=== PATIENT | female | born 1940 | race Caucasian/White ===

== ENCOUNTER → 2017-02-11 | Outpatient (CLI) | payer OTHER ==
[2017-02-11 08:54] LABS: Basophils # (auto) 0 uL; Basophils % (auto) 0.7 % (0.0-2.0); CONDITION Y; Eosinophils # (auto) 0.3 uL; Eosinophils % (auto) 6.9 % (0.0-7.0); Hemoglobin 10.3 g/dL (12.2-16.2); Lymphocytes # (auto) 0.9 uL; Lymphocytes % (auto) 21.3 % (10.0-50.0); Mean Corpuscular Hemoglobin 32.6 pg (28.0-32.0); Mean Corpuscular Hgb Conc. 34.3 g/dL (32.0-36.0); Mean Corpuscular Volume 95.1 fL (80.0-100.0); Mean Platelet Volume 8.2 fL (7.4-10.4); Monocytes # (auto) 0.3 uL; Monocytes % (auto) 7.9 % (0.0-12.0); Neutrophils # (auto) 2.7 uL; Neutrophils % (auto) 63.2 % (37.0-80.0); Platelet Count (auto) 223 10^3/uL (140-450); Red Cell Distribution Width 13.1 % (11.6-16.0); White Blood Cell 4.2 10^3/uL (4.4-10.8)
[2017-02-11 08:58] LABS: Urine Bilirubin Negative (Negative); Urine Blood Negative /uL (Negative); Urine Color Yellow (Yellow); Urine Glucose Normal (Normal); Urine Ketone Negative (Negative); Urine Nitrite Negative (Negative); Urine RBC <1 /hpf (0 - 4); Urine Squamous Epithelial Cell FEW /hpf (<5); Urine Urobilinogen Normal (Negative); Urine pH 5.5 (5.0-8.0)
[2017-02-11 10:03] LABS: Albumin 3.6 g/dL (3.4-5.0); BUN/Creatinine Ratio 39.3; Bilirubin, Total 0.4 mg/dL (0.2-1.0); Calcium 8.9 mg/dL (8.5-10.1); Potassium 4.6 mmol/L (3.5-5.1); Total Protein 7.3 g/dL (6.4-8.2)
== END | disposition home or self-care (01) ==
LOC: LAB 08:17
PROVIDERS: ATTEND Internal Medicine
DX: K21.9 Gastro-esophageal reflux disease without esophagitis (principal); I42.9 Cardiomyopathy, unspecified
CPT/HCPCS: 36415; 80053; 80061; 81001; 84439; 84443; 85025; 85652; 86141

== ENCOUNTER → 2017-03-26 | Outpatient (CLI) | payer OTHER ==
[2017-03-26 09:22] LABS: Basophils # (auto) 0 uL; Basophils % (auto) 0.7 % (0.0-2.0); Eosinophils # (auto) 0.3 uL; Eosinophils % (auto) 5.7 % (0.0-7.0); Hematocrit 30.5 % (36.0-46.0); Hemoglobin 10.1 g/dL (12.2-16.2); Lymphocytes # (auto) 0.7 uL; Lymphocytes % (auto) 14.7 % (10.0-50.0); Mean Corpuscular Hemoglobin 31.5 pg (28.0-32.0); Mean Corpuscular Hgb Conc. 33.1 g/dL (32.0-36.0); Mean Platelet Volume 7.6 fL (6.9-10.8); Monocytes # (auto) 0.5 uL; Monocytes % (auto) 9.8 % (0.0-12.0); Neutrophils # (auto) 3.2 uL; Neutrophils % (auto) 69.1 % (37.0-80.0); Platelet Count (auto) 194 10^3/uL (140-450); Red Cell Distribution Width 13.3 % (11.8-14.3); White Blood Cell 4.7 10^3/uL (4.4-10.8)
[2017-03-26 09:40] LABS: Reticulocyte Count 1.02 % (0.5-1.5)
[2017-03-26 09:53] LABS: Vitamin B12 495 pg/mL (211-911)
[2017-03-26 10:24] LABS: Temperature: 23.7 C (20.0-25.0)
== END | disposition home or self-care (01) ==
LOC: LAB 08:11
PROVIDERS: ATTEND Internal Medicine
DX: D64.9 Anemia, unspecified (principal)
CPT/HCPCS: 36415; 82607; 82746; 83010; 83540; 85025; 85045

== ENCOUNTER → 2017-08-25 | Outpatient (CLI) | payer OTHER | END | disposition home or self-care (01) | LOC: XYW 07:42 | PROVIDERS: ATTEND Internal Medicine Cardiovascular Disease | DX: I08.0 Rheumatic disorders of both mitral and aortic valves (principal); I47.1 Supraventricular tachycardia | CPT/HCPCS: 93306 ==

== ENCOUNTER → 2017-09-01 | Outpatient (CLI) | payer OTHER ==
[2017-09-01 11:32] LABS: Albumin 3.7 g/dL (3.4-5.0); BUN/Creatinine Ratio 26.9; Bilirubin, Total 0.3 mg/dL (0.2-1.0); Calcium 8.2 mg/dL (8.5-10.1); Potassium 5.3 mmol/L (3.5-5.1); Total Protein 7.3 g/dL (6.4-8.2)
== END | disposition home or self-care (01) ==
LOC: LAB 10:25
PROVIDERS: ATTEND Internal Medicine Cardiovascular Disease
DX: I42.0 Dilated cardiomyopathy (principal); E78.5 Hyperlipidemia, unspecified; I10 Essential (primary) hypertension; Z95.0 Presence of cardiac pacemaker
CPT/HCPCS: 36415; 80053; 83880

== ENCOUNTER → 2017-09-11 | Outpatient (CLI) | payer OTHER ==
[2017-09-11 12:03] LABS: BUN/Creatinine Ratio 30.9; Calcium 8.7 mg/dL (8.5-10.1); Potassium 4.6 mmol/L (3.5-5.1)
== END | disposition home or self-care (01) ==
LOC: LAB 10:17
PROVIDERS: ATTEND Internal Medicine Cardiovascular Disease
DX: E87.5 Hyperkalemia (principal); I10 Essential (primary) hypertension; E78.5 Hyperlipidemia, unspecified; E78.00 Pure hypercholesterolemia, unspecified; Z95.0 Presence of cardiac pacemaker
CPT/HCPCS: 36415; 80048

== ENCOUNTER → 2017-09-21 | Outpatient (CLI) | payer OTHER ==
[2017-09-21 12:00] LABS: Basophils # (auto) 0 uL; Eosinophils # (auto) 0.2 uL; Hemoglobin 8.2 g/dL (12.2-16.2); Lymphocytes # (auto) 0.7 uL; Monocytes # (auto) 0.4 uL; Neutrophils # (auto) 3.8 uL; Neutrophils % (auto) 74.1 % (37.0-80.0); White Blood Cell 5.1 10^3/uL (4.4-10.8)
[2017-09-21 12:06] LABS: Basophils % (auto) 0.7 % (0.0-2.0); Eosinophils % (auto) 4.7 % (0.0-7.0); Lymphocytes % (auto) 13.2 % (10.0-50.0); Mean Corpuscular Hemoglobin 29.4 pg (28.0-32.0); Mean Corpuscular Hgb Conc. 32.8 g/dL (32.0-36.0); Mean Corpuscular Volume 89.6 fL (80.0-100.0); Monocytes % (auto) 7.3 % (0.0-12.0); Platelet Count (auto) 257 10^3/uL (140-450); Red Cell Distribution Width 14.9 % (11.8-14.3)
[2017-09-21 12:22] LABS: BUN/Creatinine Ratio 26.7; Calcium 8.7 mg/dL (8.5-10.1); Potassium 4.6 mmol/L (3.5-5.1)
== END | disposition home or self-care (01) ==
LOC: LAB 11:30
PROVIDERS: ATTEND Internal Medicine Cardiovascular Disease
DX: I11.0 Hypertensive heart disease with heart failure (principal); I50.9 Heart failure, unspecified; I95.2 Hypotension due to drugs; R42 Dizziness and giddiness; E78.5 Hyperlipidemia, unspecified; E78.00 Pure hypercholesterolemia, unspecified; Z95.0 Presence of cardiac pacemaker; Z79.01 Long term (current) use of anticoagulants
CPT/HCPCS: 36415; 80048; 83880; 85025

== ENCOUNTER → 2017-09-29 | Outpatient (CLI) | payer OTHER | END | disposition home or self-care (01) | LOC: LAB 16:15 | PROVIDERS: ATTEND Internal Medicine | DX: D64.9 Anemia, unspecified (principal); E78.00 Pure hypercholesterolemia, unspecified; I10 Essential (primary) hypertension; E78.5 Hyperlipidemia, unspecified; Z79.899 Other long term (current) drug therapy; Z95.0 Presence of cardiac pacemaker | CPT/HCPCS: 82270 ==

== ENCOUNTER → 2017-11-10 | Outpatient (CLI) | payer OTHER ==
[2017-11-10 12:51] LABS: Basophils # (auto) 0.1 uL; Eosinophils # (auto) 0.3 uL; Eosinophils % (auto) 5.9 % (0.0-7.0); Hematocrit 34.1 % (36.0-46.0); Hemoglobin 11.5 g/dL (12.2-16.2); Lymphocytes % (auto) 18.4 % (10.0-50.0); Mean Corpuscular Hemoglobin 32.3 pg (28.0-32.0); Mean Corpuscular Hgb Conc. 33.8 g/dL (32.0-36.0); Mean Corpuscular Volume 95.6 fL (80.0-100.0); Monocytes # (auto) 0.3 uL; Neutrophils # (auto) 3.7 uL; Neutrophils % (auto) 68.7 % (37.0-80.0); Platelet Count (auto) 224 10^3/uL (140-450); Red Blood Cells 3.57 10^6/uL (4.0-5.20); Red Cell Distribution Width 16.7 % (11.8-14.3); White Blood Cell 5.4 10^3/uL (4.4-10.8)
[2017-11-10 14:04] LABS: BUN/Creatinine Ratio 32.2; Potassium 3.9 mmol/L (3.5-5.1)
[2017-11-10 14:05] LABS: Albumin 3.7 g/dL (3.4-5.0); Bilirubin, Total 0.2 mg/dL (0.2-1.0); Calcium 8.8 mg/dL (8.5-10.1); Total Protein 7.3 g/dL (6.4-8.2)
== END | disposition home or self-care (01) ==
LOC: LAB 12:35
PROVIDERS: ATTEND Internal Medicine
DX: I12.9 Hypertensive chronic kidney disease with stage 1 through stage 4 chronic kidney disease, or unspecified chronic kidney disease (principal); N18.3 Chronic kidney disease, stage 3 (moderate); L40.50 Arthropathic psoriasis, unspecified; E78.00 Pure hypercholesterolemia, unspecified; E78.5 Hyperlipidemia, unspecified; Z79.01 Long term (current) use of anticoagulants
CPT/HCPCS: 36415; 80053; 83970; 84550; 85025; 85652

== ENCOUNTER → 2018-02-19 | Outpatient (CLI) | payer OTHER ==
[2018-02-19 09:32] LABS: Basophils # (auto) 0 uL; Eosinophils # (auto) 0.2 uL; Lymphocytes # (auto) 0.9 uL; Monocytes # (auto) 0.3 uL; White Blood Cell 4.5 10^3/uL (4.4-10.8)
[2018-02-19 09:35] LABS: Urine Bacteria MOD /hpf (None Seen); Urine Blood Negative /uL (Negative); Urine Hyaline Cast FEW /lpf (0 - 2); Urine Specific Gravity 1.015 (1.001-1.035); Urine WBC 11 /hpf (0 - 5)
[2018-02-19 09:37] LABS: Eosinophils % (auto) 5.2 % (0.0-7.0); Hematocrit 33.3 % (36.0-46.0); Hemoglobin 11.3 g/dL (12.2-16.2); Lymphocytes % (auto) 19.4 % (10.0-50.0); Mean Corpuscular Hemoglobin 34.4 pg (28.0-32.0); Mean Corpuscular Hgb Conc. 34.1 g/dL (32.0-36.0); Mean Corpuscular Volume 101.1 fL (80.0-100.0); Neutrophils # (auto) 3.1 uL; Neutrophils % (auto) 68.4 % (37.0-80.0); Nucleated Red Blood Cells % 0.1 %; Platelet Count (auto) 200 10^3/uL (140-450); Red Blood Cells 3.29 10^6/uL (4.0-5.20); Red Cell Distribution Width 13.3 % (11.8-14.3)
[2018-02-19 10:16] LABS: Albumin 3.7 g/dL (3.4-5.0); Bilirubin, Total 0.4 mg/dL (0.2-1.0); Calcium 8.7 mg/dL (8.5-10.1); Potassium 4.3 mmol/L (3.5-5.1); Total Protein 7.2 g/dL (6.4-8.2)
[2018-02-19 10:19] LABS: Free T4 (Free Thyroxine) 0.9 ng/dL (0.89-1.76)
== END | disposition home or self-care (01) ==
LOC: LAB 08:34
PROVIDERS: ATTEND Internal Medicine
DX: D64.9 Anemia, unspecified (principal); I42.9 Cardiomyopathy, unspecified
CPT/HCPCS: 36415; 80053; 80061; 81001; 82043; 82607; 83540; 83615; 84439; 84443; 85025

== ENCOUNTER → 2018-06-18 | Outpatient (CLI) | payer OTHER, MEDICARE ==
[2018-06-18 10:00] LABS: Basophils # (auto) 0 uL; Eosinophils # (auto) 0.1 uL; Monocytes # (auto) 0.5 uL; Neutrophils % (auto) 77.3 % (37.0-80.0)
[2018-06-18 10:04] LABS: Basophils % (auto) 0.5 % (0.0-2.0); Eosinophils % (auto) 1.5 % (0.0-7.0); Hematocrit 33.9 % (36.0-46.0); Hemoglobin 11.7 g/dL (12.2-16.2); Lymphocytes # (auto) 0.8 uL; Lymphocytes % (auto) 13.1 % (10.0-50.0); Mean Corpuscular Hemoglobin 34.5 pg (28.0-32.0); Mean Corpuscular Hgb Conc. 34.4 g/dL (32.0-36.0); Mean Corpuscular Volume 100.1 fL (80.0-100.0); Monocytes % (auto) 7.6 % (0.0-12.0); Nucleated Red Blood Cells % 0.1 %; Platelet Count (auto) 227 10^3/uL (140-450); Red Blood Cells 3.38 10^6/uL (4.0-5.20); Red Cell Distribution Width 13.3 % (11.8-14.3); White Blood Cell 6.4 10^3/uL (4.4-10.8)
[2018-06-18 11:54] LABS: Albumin 3.7 g/dL (3.4-5.0); BUN/Creatinine Ratio 34.4; Bilirubin, Total 0.6 mg/dL (0.2-1.0); Calcium 8.7 mg/dL (8.5-10.1); Total Protein 7.2 g/dL (6.4-8.2)
== END | disposition home or self-care (01) ==
LOC: LAB 09:22
PROVIDERS: ATTEND Internal Medicine
DX: N18.2 Chronic kidney disease, stage 2 (mild) (principal); D64.9 Anemia, unspecified; E78.5 Hyperlipidemia, unspecified
CPT/HCPCS: 36415; 80053; 80061; 85025

== ENCOUNTER → 2018-10-18 | Outpatient (CLI) | payer OTHER, MEDICARE ==
[2018-10-18 08:26] LABS: Basophils # (auto) 0.1 uL; Basophils % (auto) 1.2 % (0.0-2.0); Eosinophils # (auto) 0.2 uL; Eosinophils % (auto) 3.8 % (0.0-7.0); Hematocrit 32.9 % (36.0-46.0); Hemoglobin 11.1 g/dL (12.2-16.2); Lymphocytes % (auto) 21.2 % (10.0-50.0); Mean Corpuscular Hemoglobin 33.6 pg (28.0-32.0); Mean Corpuscular Hgb Conc. 33.7 g/dL (32.0-36.0); Mean Corpuscular Volume 99.6 fL (80.0-100.0); Monocytes # (auto) 0.4 uL; Monocytes % (auto) 7.9 % (0.0-12.0); Neutrophils # (auto) 3.1 uL; Neutrophils % (auto) 65.9 % (37.0-80.0); Platelet Count (auto) 233 10^3/uL (140-450); Red Cell Distribution Width 12.5 % (11.8-14.3); White Blood Cell 4.7 10^3/uL (4.4-10.8)
[2018-10-18 08:41] LABS: Potassium 4.4 mmol/L (3.5-5.1)
== END | disposition home or self-care (01) ==
LOC: LAB 07:55
PROVIDERS: ATTEND Internal Medicine
DX: E78.00 Pure hypercholesterolemia, unspecified (principal); I50.9 Heart failure, unspecified
CPT/HCPCS: 36415; 80061; 84132; 85025

== ENCOUNTER → 2019-01-19 | Outpatient (CLI) | payer OTHER ==
[~2019-01-19] MED LIST: ASPI81CH43 PO; ATOR10TA PO; CARV12.544 PO; DICL1GEL26 TD; FLUO-125 PO; FURO20TA3 PO; LISI2.5T47 PO; MULTCHW OR; TRAM50TA2 PO; WARF2.5T39 PO
[2019-01-19 08:36] LABS: Basophils # (auto) 0.1 uL; Basophils % (auto) 1.3 % (0.0-2.0); Eosinophils # (auto) 0.3 uL; Eosinophils % (auto) 6.7 % (0.0-7.0); Hematocrit 27.4 % (36.0-46.0); Hemoglobin 9.1 g/dL (12.2-16.2); Lymphocytes # (auto) 0.8 uL; Lymphocytes % (auto) 21.1 % (10.0-50.0); Mean Corpuscular Hemoglobin 29.4 pg (28.0-32.0); Mean Corpuscular Hgb Conc. 33.2 g/dL (32.0-36.0); Mean Corpuscular Volume 88.6 fL (80.0-100.0); Monocytes # (auto) 0.4 uL; Monocytes % (auto) 9.3 % (0.0-12.0); Neutrophils # (auto) 2.5 uL; Neutrophils % (auto) 61.6 % (37.0-80.0); Platelet Count (auto) 221 10^3/uL (140-450); Red Blood Cells 3.09 10^6/uL (4.0-5.20)
[2019-01-19 09:07] LABS: Potassium 4.4 mmol/L (3.5-5.1)
== END | disposition home or self-care (01) ==
LOC: LAB 08:15
PROVIDERS: ATTEND Internal Medicine
DX: D64.9 Anemia, unspecified (principal); I11.0 Hypertensive heart disease with heart failure; I50.9 Heart failure, unspecified; E78.00 Pure hypercholesterolemia, unspecified
CPT/HCPCS: 36415; 80061; 82607; 83540; 83615; 84132; 85025

== ENCOUNTER → 2019-02-03 | Outpatient (CLI) | payer OTHER, MEDICARE | END | disposition home or self-care (01) | LOC: LAB 14:48 | PROVIDERS: ATTEND Internal Medicine | DX: D64.9 Anemia, unspecified (principal) | CPT/HCPCS: 82270 ==

== ENCOUNTER → 2019-02-23 | Outpatient (CLI) | payer MEDICARE, OTHER | END | disposition home or self-care (01) | LOC: XY 07:25 | PROVIDERS: ATTEND Internal Medicine | DX: M89.9 Disorder of bone, unspecified (principal); I10 Essential (primary) hypertension | CPT/HCPCS: 78306; A9503 ==

== ENCOUNTER → 2019-03-14 | Outpatient (CLI) | payer OTHER ==
[2019-03-14 10:56] LABS: Basophils # (auto) 0 uL; Basophils % (auto) 1.3 % (0.0-2.0); Eosinophils # (auto) 0.2 uL; Eosinophils % (auto) 6.2 % (0.0-7.0); Hematocrit 32.2 % (36.0-46.0); Hemoglobin 10.4 g/dL (12.2-16.2); Lymphocytes # (auto) 0.7 uL; Lymphocytes % (auto) 21.7 % (10.0-50.0); Mean Corpuscular Hemoglobin 27.9 pg (28.0-32.0); Mean Corpuscular Hgb Conc. 32.3 g/dL (32.0-36.0); Mean Corpuscular Volume 86.5 fL (80.0-100.0); Monocytes # (auto) 0.2 uL; Monocytes % (auto) 7.4 % (0.0-12.0); Neutrophils # (auto) 2.1 uL; Neutrophils % (auto) 63.4 % (37.0-80.0); Nucleated Red Blood Cells % 0.1 %; Platelet Count (auto) 215 10^3/uL (140-450); Red Blood Cells 3.72 10^6/uL (4.0-5.20); Red Cell Distribution Width 21.6 % (11.8-14.3); White Blood Cell 3.3 10^3/uL (4.4-10.8)
[2019-03-14 11:41] LABS: Albumin 3.8 g/dL (3.4-5.0); BUN/Creatinine Ratio 23.2; Bilirubin, Total 0.4 mg/dL (0.2-1.0); Total Protein 7.6 g/dL (6.4-8.2); Uric Acid 5.4 mg/dL (2.6-6.0)
[2019-03-15 08:08] LABS: Immunoglobulin G, Serum 932 mg/dL (700-1600)
== END | disposition home or self-care (01) ==
LOC: LAB 10:22
PROVIDERS: ATTEND Internal Medicine
DX: D64.89 Other specified anemias (principal); M89.9 Disorder of bone, unspecified
CPT/HCPCS: 36415; 80053; 82232; 82784; 83615; 83883; 84155; 84156; 84165; 84166; 84550; 85025

== ENCOUNTER → 2019-05-03 | Outpatient (CLI) | payer OTHER, MEDICARE ==
[2019-05-03 11:50] LABS: Basophils # (auto) 0 uL; Eosinophils # (auto) 0.2 uL; Eosinophils % (auto) 4.3 % (0.0-7.0); Hematocrit 35.2 % (36.0-46.0); Hemoglobin 12.3 g/dL (12.2-16.2); Lymphocytes # (auto) 1.1 uL; Mean Corpuscular Hemoglobin 32.3 pg (28.0-32.0); Mean Corpuscular Hgb Conc. 34.8 g/dL (32.0-36.0); Mean Corpuscular Volume 92.8 fL (80.0-100.0); Monocytes # (auto) 0.3 uL; Monocytes % (auto) 6.7 % (0.0-12.0); Nucleated Red Blood Cells % 0.1 %; Platelet Count (auto) 201 10^3/uL (140-450); White Blood Cell 4.6 10^3/uL (4.4-10.8)
[2019-05-03 11:52] LABS: Red Cell Distribution Width 22.1 % (11.8-14.3)
[2019-05-03 12:08] LABS: INR 1.22 (0.9-1.15)
== END | disposition home or self-care (01) ==
LOC: LAB 11:24
PROVIDERS: ATTEND Internal Medicine
DX: I11.0 Hypertensive heart disease with heart failure (principal); I50.9 Heart failure, unspecified; D64.9 Anemia, unspecified; I48.91 Unspecified atrial fibrillation; I25.2 Old myocardial infarction
CPT/HCPCS: 36415; 83540; 85025; 85610; 85652

== ENCOUNTER → 2019-06-14 | Outpatient (CLI) | payer OTHER, MEDICARE ==
[2019-06-14 10:23] LABS: Eosinophils # (auto) 0.2 uL; Lymphocytes # (auto) 0.8 uL; Monocytes # (auto) 0.3 uL; Neutrophils # (auto) 3.4 uL; Platelet Count (auto) 278 10^3/uL (140-450); White Blood Cell 4.7 10^3/uL (4.4-10.8)
[2019-06-14 10:24] LABS: Basophils # (auto) 0 uL; Eosinophils % (auto) 3.9 % (0.0-7.0); Hematocrit 31.6 % (36.0-46.0); Lymphocytes % (auto) 17.6 % (10.0-50.0); Mean Corpuscular Hgb Conc. 34.8 g/dL (32.0-36.0); Mean Corpuscular Volume 100.7 fL (80.0-100.0); Monocytes % (auto) 6.7 % (0.0-12.0); Neutrophils % (auto) 70.8 % (37.0-80.0); Red Blood Cells 3.14 10^6/uL (4.0-5.20); Red Cell Distribution Width 13.3 % (11.8-14.3)
[2019-06-14 10:46] LABS: Albumin 3.9 g/dL (3.4-5.0); Calcium 9.4 mg/dL (8.5-10.1); Potassium 4.4 mmol/L (3.5-5.1)
[2019-06-14 10:50] LABS: BUN/Creatinine Ratio 20.9; Bilirubin, Total 0.4 mg/dL (0.2-1.0); Total Protein 7.4 g/dL (6.4-8.2)
[2019-06-14 10:55] LABS: % Iron Saturation 28.6 % (15-50)
[2019-06-17 02:25] LABS: Ferritin 192.1 ng/mL (10-322); Folate (Folic Acid) > 24.00 ng/mL (5.38-24)
== END | disposition home or self-care (01) ==
LOC: LAB 08:58
PROVIDERS: ATTEND Internal Medicine
DX: D64.89 Other specified anemias (principal); M89.9 Disorder of bone, unspecified
CPT/HCPCS: 36415; 80053; 82607; 82728; 82746; 83540; 83550; 85025

== ENCOUNTER → 2019-09-13 | Outpatient (CLI) | payer MEDICARE, OTHER ==
[2019-09-13 09:44] LABS: Basophils # (auto) 0.1 10 ^3/uL (0-0.2); Eosinophils # (auto) 0.2 10 ^3/uL (0-0.8); Hematocrit 30.4 % (36.0-46.0); Hemoglobin 10.4 g/dL (12.2-16.2); Lymphocytes # (auto) 0.7 10 ^3/uL (0.4-5.4); Monocytes # (auto) 0.4 10 ^3/uL (0-1.3); Platelet Count (auto) 220 10^3/uL (140-450); Red Blood Cells 3.01 10^6/uL (4.0-5.20); White Blood Cell 5.2 10^3/uL (4.4-10.8)
[2019-09-13 09:46] LABS: Basophils % (auto) 1.3 % (0.0-2.0); Eosinophils % (auto) 3.2 % (0.0-7.0); Lymphocytes % (auto) 14.4 % (10.0-50.0); Mean Corpuscular Hemoglobin 34.5 pg (28.0-32.0); Mean Corpuscular Hgb Conc. 34.3 g/dL (32.0-36.0); Mean Corpuscular Volume 100.8 fL (80.0-100.0); Neutrophils # (auto) 3.8 10 ^3/uL (1.6-8.6); Neutrophils % (auto) 74.1 % (37.0-80.0)
[2019-09-13 10:19] LABS: Albumin 3.8 g/dL (3.4-5.0); Potassium 4.2 mmol/L (3.5-5.1)
[2019-09-13 10:20] LABS: % Iron Saturation 11.1 % (15-50)
[2019-09-13 10:22] LABS: BUN/Creatinine Ratio 28.3; Bilirubin, Total 0.4 mg/dL (0.2-1.0); Total Protein 7.4 g/dL (6.4-8.2)
== END | disposition home or self-care (01) ==
LOC: LAB 09:27
PROVIDERS: ATTEND Internal Medicine Hematology & Oncology
DX: D64.89 Other specified anemias (principal)
CPT/HCPCS: 36415; 80053; 82607; 83540; 83550; 85025

== ENCOUNTER → 2019-10-25 | Outpatient (CLI) | payer OTHER ==
[~2019-10-25] MED LIST changes: +PANT40T PO
== END | disposition home or self-care (01) ==
LOC: LAB 12:47
PROVIDERS: ATTEND Internal Medicine
DX: I48.91 Unspecified atrial fibrillation (principal)
CPT/HCPCS: 36415; 84439; 84443

== ENCOUNTER 2019-11-11 14:43 | Inpatient (IN) | payer OTHER ==
[~2019-11-11] VITALS: Ht 157.5 cm; Wt 47.7 kg
[~2019-11-11 14:43] MED LIST changes: -PANT40T PO
[2019-11-11 15:53] LABS: Eosinophils # (auto) 0.2 10 ^3/uL (0-0.8); Lymphocytes # (auto) 0.9 10 ^3/uL (0.4-5.4); Platelet Count (auto) 264 10^3/uL (140-450); Red Blood Cells 2.42 10^6/uL (4.0-5.20)
[2019-11-11 15:55] LABS: Basophils # (auto) 0.1 10 ^3/uL (0-0.2); Basophils % (auto) 1.2 % (0.0-2.0); Eosinophils % (auto) 4.5 % (0.0-7.0); Hematocrit 21.6 % (36.0-46.0); Lymphocytes % (auto) 17.8 % (10.0-50.0); Mean Corpuscular Hgb Conc. 31.3 g/dL (32.0-36.0); Mean Corpuscular Volume 89.4 fL (80.0-100.0); Monocytes # (auto) 0.4 10 ^3/uL (0-1.3); Monocytes % (auto) 8.9 % (0.0-12.0); Neutrophils # (auto) 3.2 10 ^3/uL (1.6-8.6); Neutrophils % (auto) 67.6 % (37.0-80.0); White Blood Cell 4.8 10^3/uL (4.4-10.8)
[2019-11-11] MEDS ORDERED: AZITHROMYCIN 500MG/ 250ML 250 ML IV ONE (16:00)
[2019-11-11] MEDS ORDERED: cefTRIAXone 1GM/50ML D5W 50 ML IV ONE (16:00)
[2019-11-11 16:10] LABS: Hemoglobin 6.8 g/dL (12.2-16.2)
[2019-11-11 16:13] LABS: Albumin 3.6 g/dL (3.4-5.0); Anion Gap 5 (5-15); Blood Urea Nitrogen 24 mg/dL (7-18); Calcium 8.3 mg/dL (8.5-10.1); Carbon Dioxide 27 mmol/L (21-32); Chloride 107 mmol/L (98-107); Glucose 101 mg/dL (74-106); Potassium 3.7 mmol/L (3.5-5.1); Sodium 139 mmol/L (136-145)
[2019-11-11 16:16] LABS: INR 1.72 (0.9-1.15); Partial Thromboplastin Time 32.4 sec (23.64-32.05)
[2019-11-11 16:18] LABS: Alanine Aminotransferase 18 U/L (13-56); Alkaline Phosphatase 56 U/L (45-117); Aspartate Aminotransferase 17 U/L (15-37); BUN/Creatinine Ratio 26.1; Bilirubin, Total 0.2 mg/dL (0.2-1.0); GFR African American 76 mL/min; GFR Non-African American 62 mL/min; Total Protein 7.1 g/dL (6.4-8.2)
[2019-11-11] MEDS ORDERED: MORPHINE SULF INJ 2 MG/ML SYRINGE 1ML IV PRN ×2 (16:45)
[2019-11-11] MEDS ORDERED: HYDROcodone-ACET 5/325MG TAB PO PRN (16:45)
[2019-11-11] MEDS ORDERED: ALUM & MAG HYDROX-SIMETH LIQ(MAALOX) 30 ML PO PRN (16:45)
[2019-11-11] MEDS ORDERED: DOCUSATE SOD 100 MG CAP PO PRN (16:45)
[2019-11-11] MEDS ORDERED: FUROSEMIDE 20 MG/2 ML VIAL IV ONE (16:45)
[2019-11-11] MEDS ORDERED: NITROGLYCERIN 0.4 MG SL TAB SL PRN (16:45)
[2019-11-11] MEDS ORDERED: ONDANSETRON HCL 4 MG/2 ML VIAL IV PRN (16:45)
[2019-11-11] MEDS ORDERED: TEMAZEPAM 15 MG CAP PO PRN (16:45)
[2019-11-11] MEDS: SODIUM CHLORIDE 0.9% 1,000 ML IV SCH (17:32)
[2019-11-11 18:56] VITALS: BP 107/40
[2019-11-11 19:11] VITALS: BP 108/34
[2019-11-11 20:15] VITALS: BP 115/51
[2019-11-11 21:26] VITALS: BP 108/52
[2019-11-11 22:00] VITALS: BP 108/52
[2019-11-11] MEDS ORDERED: HEPARIN SODIUM (PORCINE) 5000 UNITS/ML 1ML VIAL SC SCH (22:00)
[2019-11-11] MEDS: CARVEDILOL 12.5 MG TAB PO SCH (22:00)
[2019-11-11] MEDS: ATORVASTATIN 20 MG TAB PO SCH (22:04)
[2019-11-12] VITALS (13 sets, daily range): BP systolic 97–126; BP diastolic 43–68
[2019-11-12] MEDS: FUROSEMIDE 20 MG/2 ML VIAL IV SCH ×2 (06:05→17:59)
[2019-11-12 06:56] LABS: Eosinophils # (auto) 0.2 10 ^3/uL (0-0.8); Lymphocytes # (auto) 0.6 10 ^3/uL (0.4-5.4); Mean Corpuscular Volume 87.3 fL (80.0-100.0); Monocytes # (auto) 0.3 10 ^3/uL (0-1.3); Neutrophils # (auto) 3.7 10 ^3/uL (1.6-8.6); White Blood Cell 4.9 10^3/uL (4.4-10.8)
[2019-11-12 06:59] LABS: Basophils # (auto) 0.1 10 ^3/uL (0-0.2); Hematocrit 23.4 % (36.0-46.0); Hemoglobin 7.5 g/dL (12.2-16.2); Lymphocytes % (auto) 12.3 % (10.0-50.0); Mean Corpuscular Hemoglobin 28.1 pg (28.0-32.0); Mean Corpuscular Hgb Conc. 32.2 g/dL (32.0-36.0); Neutrophils % (auto) 75.7 % (37.0-80.0); Platelet Count (auto) 231 10^3/uL (140-450); Red Blood Cells 2.68 10^6/uL (4.0-5.20); Red Cell Distribution Width 18.7 % (11.8-14.3)
[2019-11-12 07:16] LABS: Potassium 3.6 mmol/L (3.5-5.1)
[2019-11-12 07:22] LABS: Albumin 3.2 g/dL (3.4-5.0); BUN/Creatinine Ratio 30.1; Bilirubin, Total 0.3 mg/dL (0.2-1.0); Phosphorus 3.2 mg/dL (2.5-4.90); Total Protein 6.2 g/dL (6.4-8.2)
[2019-11-12 07:30] LABS: INR 1.68 (0.9-1.15); Partial Thromboplastin Time 33.2 sec (23.64-32.05)
[2019-11-12] MEDS: cefTRIAXone 1GM/50ML D5W 50 ML IV SCH (08:41)
[2019-11-12] MEDS: SODIUM CHLORIDE 0.9% 1,000 ML IV SCH (09:13)
[2019-11-12] MEDS ORDERED: ASPirin 81 mg TAB PO SCH (10:00)
[2019-11-12] MEDS: FLUoxetine HCL 20 MG CAP PO SCH (10:14)
[2019-11-12] MEDS: AZITHROMYCIN 500MG/ 250ML 250 ML IV SCH (10:14)
[2019-11-12] MEDS: LISINOPRIL 5 MG TAB PO SCH (10:15)
[2019-11-12] MEDS: CARVEDILOL 12.5 MG TAB PO SCH ×2 (10:15→21:49)
[2019-11-12] MEDS ORDERED: POLYETHYLENE GLYCOL 17 GM PWDR PO ONE (11:45)
[2019-11-12] MEDS ORDERED: diphenhdrAMINE HCL 25 MG CAP PO PRN (13:45)
[2019-11-12] MEDS ORDERED: ACETAMINOPHEN 500 MG TAB PO ONE (14:00)
[2019-11-12 16:05] LABS: Urine Bacteria NONE SEEN /hpf (None Seen); Urine Blood TRACE /uL (Negative); Urine Hyaline Cast FEW /lpf (0 - 2); Urine Mucus FEW (None Seen); Urine Specific Gravity 1.015 (1.001-1.035); Urine WBC 38 /hpf (0 - 5)
[2019-11-12] MEDS ORDERED: FUROSEMIDE 20 MG/2 ML VIAL IV ONE (16:15)
[2019-11-12] MEDS: PANTOPRAZOLE 40 MG TAB PO SCH (21:48)
[2019-11-12] MEDS: ATORVASTATIN 20 MG TAB PO SCH (21:48)
[2019-11-13 05:00] VITALS: BP 112/66
[2019-11-13] MEDS: FUROSEMIDE 20 MG/2 ML VIAL IV SCH ×2 (05:51→17:48)
[2019-11-13 06:27] LABS: Basophils # (auto) 0 10 ^3/uL (0-0.2); Basophils % (auto) 0.6 % (0.0-2.0); Eosinophils # (auto) 0.2 10 ^3/uL (0-0.8); Eosinophils % (auto) 3.1 % (0.0-7.0); Hematocrit 30.5 % (36.0-46.0); Hemoglobin 9.8 g/dL (12.2-16.2); Lymphocytes # (auto) 0.7 10 ^3/uL (0.4-5.4); Lymphocytes % (auto) 10.8 % (10.0-50.0); Mean Corpuscular Hemoglobin 28.5 pg (28.0-32.0); Mean Corpuscular Hgb Conc. 32.2 g/dL (32.0-36.0); Mean Corpuscular Volume 88.8 fL (80.0-100.0); Monocytes # (auto) 0.5 10 ^3/uL (0-1.3); Monocytes % (auto) 6.9 % (0.0-12.0); Neutrophils # (auto) 5.4 10 ^3/uL (1.6-8.6); Neutrophils % (auto) 78.6 % (37.0-80.0); Platelet Count (auto) 257 10^3/uL (140-450); Red Blood Cells 3.43 10^6/uL (4.0-5.20); Red Cell Distribution Width 18.5 % (11.8-14.3); White Blood Cell 6.8 10^3/uL (4.4-10.8)
[2019-11-13 06:48] LABS: Potassium 3.8 mmol/L (3.5-5.1)
[2019-11-13 06:54] LABS: BUN/Creatinine Ratio 33.3; Calcium 8.7 mg/dL (8.5-10.1); Magnesium 2.4 mg/dL (1.6-2.6)
[2019-11-13] MEDS: cefTRIAXone 1GM/50ML D5W 50 ML IV SCH (08:46)
[2019-11-13 09:00] VITALS: BP 129/61
[2019-11-13] MEDS: AZITHROMYCIN 500MG/ 250ML 250 ML IV SCH (09:56)
[2019-11-13] MEDS: PANTOPRAZOLE 40 MG TAB PO SCH ×2 (09:57→23:37)
[2019-11-13] MEDS: CARVEDILOL 12.5 MG TAB PO SCH (09:57)
[2019-11-13] MEDS: FLUoxetine HCL 20 MG CAP PO SCH (09:58)
[2019-11-13] MEDS: LISINOPRIL 5 MG TAB PO SCH (09:58)
[2019-11-13] MEDS ORDERED: SODIUM CHLORIDE 0.9% 250 ML IV ONE (12:15)
[2019-11-13 13:00] VITALS: BP 76/50
[2019-11-13 17:13] VITALS: BP 108/57
[2019-11-13 22:00] VITALS: BP 90/58
[2019-11-13] MEDS: ATORVASTATIN 20 MG TAB PO SCH (23:37)
[2019-11-14 05:00] VITALS: BP 94/75
[2019-11-14] MEDS: FUROSEMIDE 20 MG/2 ML VIAL IV SCH ×2 (05:57→18:00)
[2019-11-14 06:42] LABS: Basophils # (auto) 0.1 10 ^3/uL (0-0.2); Basophils % (auto) 0.9 % (0.0-2.0); Eosinophils # (auto) 0.2 10 ^3/uL (0-0.8); Eosinophils % (auto) 3.8 % (0.0-7.0); Hematocrit 29.9 % (36.0-46.0); Hemoglobin 9.7 g/dL (12.2-16.2); Lymphocytes # (auto) 0.8 10 ^3/uL (0.4-5.4); Lymphocytes % (auto) 12.2 % (10.0-50.0); Mean Corpuscular Hgb Conc. 32.6 g/dL (32.0-36.0); Monocytes # (auto) 0.5 10 ^3/uL (0-1.3); Monocytes % (auto) 8.4 % (0.0-12.0); Neutrophils # (auto) 4.8 10 ^3/uL (1.6-8.6); Neutrophils % (auto) 74.7 % (37.0-80.0); Platelet Count (auto) 251 10^3/uL (140-450); Red Blood Cells 3.36 10^6/uL (4.0-5.20); Red Cell Distribution Width 18.4 % (11.8-14.3); White Blood Cell 6.4 10^3/uL (4.4-10.8)
[2019-11-14 06:59] LABS: Potassium 3.9 mmol/L (3.5-5.1)
[2019-11-14 07:10] LABS: BUN/Creatinine Ratio 35.8; Calcium 8.7 mg/dL (8.5-10.1)
[2019-11-14] MEDS: cefTRIAXone 1GM/50ML D5W 50 ML IV SCH (08:45)
[2019-11-14 09:00] VITALS: BP 102/56
[2019-11-14] MEDS: AZITHROMYCIN 500MG/ 250ML 250 ML IV SCH (09:55)
[2019-11-14] MEDS: FLUoxetine HCL 20 MG CAP PO SCH (09:55)
[2019-11-14] MEDS: PANTOPRAZOLE 40 MG TAB PO SCH ×2 (09:55→22:05)
[2019-11-14 13:00] VITALS: BP 90/51
[2019-11-14] MEDS ORDERED: GOLYTELY 4L KIT PO ONE (14:00)
[2019-11-14 17:00] VITALS: BP 127/69
[2019-11-14] MEDS: ATORVASTATIN 20 MG TAB PO SCH (22:05)
[2019-11-15] VITALS (7 sets, daily range): BP systolic 100–148; BP diastolic 50–78
[2019-11-15] MEDS: FUROSEMIDE 20 MG/2 ML VIAL IV SCH ×2 (06:00→18:00)
[2019-11-15] MEDS ORDERED: GOLYTELY 4L KIT PO ONE (06:00)
[2019-11-15 06:44] LABS: INR 1.13 (0.9-1.15); Partial Thromboplastin Time 30.7 sec (23.64-32.05)
[2019-11-15] MEDS ORDERED: LIDOCAINE VISCOUS 2% 15ML UD ONE (08:19)
[2019-11-15] MEDS ORDERED: SODIUM CHLORIDE LOCK 10 ML ONE (08:19)
[2019-11-15] MEDS ORDERED: diphenhdrAMINE HCL 50 MG/1 ML VL ONE (08:20)
[2019-11-15] MEDS: cefTRIAXone 1GM/50ML D5W 50 ML IV SCH (09:06)
[2019-11-15] MEDS: FLUoxetine HCL 20 MG CAP PO SCH (10:00)
[2019-11-15] MEDS: AZITHROMYCIN 500MG/ 250ML 250 ML IV SCH (10:00)
[2019-11-15] MEDS: PANTOPRAZOLE 40 MG TAB PO SCH ×2 (10:00→21:22)
[2019-11-15] MEDS: fentaNYL CITRATE 100 MCG/2 ML VL ONE ×3 (10:24→10:39)
[2019-11-15] MEDS: MIDAZOLAM HCL 5 MG/ML-1ML VIAL ONE ×3 (10:24→10:39)
[2019-11-15] MEDS ORDERED: NALOXONE HCL 0.4 MG/ML VIAL IM ONE (16:00)
[2019-11-15] MEDS ORDERED: FLUMAZENIL 0.1 MG/ML INJ 10ML MDV IV ONE (16:00)
[2019-11-15] MEDS: ATORVASTATIN 20 MG TAB PO SCH (21:22)
[2019-11-16 05:00] VITALS: BP 120/76
[2019-11-16] MEDS: FUROSEMIDE 20 MG/2 ML VIAL IV SCH (05:35)
[2019-11-16] MEDS: cefTRIAXone 1GM/50ML D5W 50 ML IV SCH (08:48)
[2019-11-16 09:00] VITALS: BP 124/57
[2019-11-16] MEDS ORDERED: NALOXONE HCL 0.4 MG/ML VIAL ONE (09:12)
[2019-11-16] MEDS ORDERED: FLUMAZENIL 0.1 MG/ML INJ 10ML MDV IV ONE (09:12)
[2019-11-16] MEDS: FLUoxetine HCL 20 MG CAP PO SCH (09:43)
[2019-11-16] MEDS: PANTOPRAZOLE 40 MG TAB PO SCH (09:43)
[2019-11-16] MEDS: AZITHROMYCIN 500MG/ 250ML 250 ML IV SCH (09:43)
[2019-11-16] MEDS ORDERED: AZITHROMYCIN 250 MG TAB PO ONE (10:45)
[2019-11-16] MEDS ORDERED: PANT40T PO (11:27)
== END 2019-11-16 12:21 | disposition home or self-care (01) | DRG 391 ==
LOC: ER 14:43 → TELE 14:44 → TELE-WESTW 20:12
PROVIDERS: ADMIT Hospitalist; ATTEND Internal Medicine
PROC: 30230N1 Transfusion of Nonautologous Red Blood Cells into Peripheral Vein, Open Approach (ICD-10-PCS; principal; 2019-11-11)
PROC: 0DJD8ZZ Inspection of Lower Intestinal Tract, Via Natural or Artificial Opening Endoscopic (ICD-10-PCS; 2019-11-15)
PROC: 0DB68ZX Excision of Stomach, Via Natural or Artificial Opening Endoscopic, Diagnostic (ICD-10-PCS; 2019-11-15 10:20)
DX: K29.70 Gastritis, unspecified, without bleeding (principal); J18.9 Pneumonia, unspecified organism; I50.23 Acute on chronic systolic (congestive) heart failure; N39.0 Urinary tract infection, site not specified; D68.59 Other primary thrombophilia; D64.9 Anemia, unspecified; I11.0 Hypertensive heart disease with heart failure; E86.0 Dehydration; K44.9 Diaphragmatic hernia without obstruction or gangrene; M06.041 Rheumatoid arthritis without rheumatoid factor, right hand; M06.042 Rheumatoid arthritis without rheumatoid factor, left hand; I27.20 Pulmonary hypertension, unspecified; E78.5 Hyperlipidemia, unspecified; E78.00 Pure hypercholesterolemia, unspecified; T45.515A Adverse effect of anticoagulants, initial encounter; I95.9 Hypotension, unspecified; F32.9 Major depressive disorder, single episode, unspecified; K57.30 Diverticulosis of large intestine without perforation or abscess without bleeding; Z90.710 Acquired absence of both cervix and uterus; I25.2 Old myocardial infarction; Z95.810 Presence of automatic (implantable) cardiac defibrillator; Z79.82 Long term (current) use of aspirin; Z79.899 Other long term (current) drug therapy; Y92.89 Other specified places as the place of occurrence of the external cause
CPT/HCPCS: 36415; 43239; 45378; 71046; 80048; 80053; 81001; 82270; 82728; 83735; 83880; 84100; 84484; 85025; 85610; 85730; 86850; 86900; 86901; 86920; 87040; 87070; 87086; 87804; 87880; 93005; 93306; 94762; 99291; G0378; J0696; J2250

== ENCOUNTER → 2019-11-11 | Outpatient (CLI) | payer OTHER ==
[2019-11-11 12:57] LABS: Basophils # (auto) 0 10 ^3/uL (0-0.2); Eosinophils # (auto) 0.2 10 ^3/uL (0-0.8); Eosinophils % (auto) 3.6 % (0.0-7.0); Lymphocytes # (auto) 0.7 10 ^3/uL (0.4-5.4); Monocytes # (auto) 0.3 10 ^3/uL (0-1.3); Red Blood Cells 2.47 10^6/uL (4.0-5.20)
[2019-11-11 12:59] LABS: Basophils % (auto) 0.9 % (0.0-2.0); Hematocrit 22.1 % (36.0-46.0); Lymphocytes % (auto) 14.8 % (10.0-50.0); Mean Corpuscular Hemoglobin 27.9 pg (28.0-32.0); Mean Corpuscular Hgb Conc. 31.1 g/dL (32.0-36.0); Mean Corpuscular Volume 89.5 fL (80.0-100.0); Monocytes % (auto) 6.2 % (0.0-12.0); Neutrophils # (auto) 3.7 10 ^3/uL (1.6-8.6); Neutrophils % (auto) 74.5 % (37.0-80.0); Platelet Count (auto) 283 10^3/uL (140-450); Red Cell Distribution Width 19.1 % (11.8-14.3); White Blood Cell 4.9 10^3/uL (4.4-10.8)
[2019-11-11 13:09] LABS: Hemoglobin 6.9 g/dL (12.2-16.2)
[2019-11-11 13:28] LABS: Albumin 3.8 g/dL (3.4-5.0); Calcium 8.5 mg/dL (8.5-10.1)
[2019-11-11 13:31] LABS: BUN/Creatinine Ratio 25.5; Bilirubin, Total 0.2 mg/dL (0.2-1.0); Total Protein 7.3 g/dL (6.4-8.2)
== END | disposition home or self-care (01) ==
LOC: LAB 12:43
PROVIDERS: ATTEND Internal Medicine
DX: D64.9 Anemia, unspecified (principal); I50.22 Chronic systolic (congestive) heart failure
CPT/HCPCS: 36415; 80053; 82607; 83540; 83880; 85025

== ENCOUNTER 2020-01-07 13:48 | Inpatient (IN) | payer OTHER ==
[~2020-01-07] VITALS: Ht 157.5 cm; Wt 49.7 kg
[~2020-01-07 13:48] MED LIST changes: +PANT40T PO; -WARF2.5T39 PO
[2020-01-07] MEDS ORDERED: ACETAMINOPHEN 325 MG TAB PO ONE (14:30)
[2020-01-07 15:04] LABS: Basophils # (auto) 0 10 ^3/uL (0-0.2); Basophils % (auto) 0.5 % (0.0-2.0); Eosinophils # (auto) 0.1 10 ^3/uL (0-0.8); Eosinophils % (auto) 0.8 % (0.0-7.0); Hematocrit 33.2 % (36.0-46.0); Hemoglobin 10.7 g/dL (12.2-16.2); Lymphocytes # (auto) 0.6 10 ^3/uL (0.4-5.4); Lymphocytes % (auto) 9.8 % (10.0-50.0); Mean Corpuscular Hgb Conc. 32.3 g/dL (32.0-36.0); Monocytes # (auto) 0.3 10 ^3/uL (0-1.3); Monocytes % (auto) 4.1 % (0.0-12.0); Neutrophils # (auto) 5.6 10 ^3/uL (1.6-8.6); Neutrophils % (auto) 84.8 % (37.0-80.0); Platelet Count (auto) 205 10^3/uL (140-450); Red Blood Cells 3.57 10^6/uL (4.0-5.20); Red Cell Distribution Width 20.2 % (11.8-14.3); White Blood Cell 6.6 10^3/uL (4.4-10.8)
[2020-01-07 15:14] LABS: Albumin 3.6 g/dL (3.4-5.0); Calcium 8.8 mg/dL (8.5-10.1); Potassium 4.5 mmol/L (3.5-5.1)
[2020-01-07] MEDS ORDERED: ZINC SULFATE 220mg CAP or TAB PO ONE (15:15)
[2020-01-07] MEDS ORDERED: ASCORBIC ACID 500 MG TAB PO ONE (15:15)
[2020-01-07] MEDS ORDERED: AZITHROMYCIN 500MG/ 250ML 250 ML IV ONE (15:15)
[2020-01-07 15:19] LABS: BUN/Creatinine Ratio 25.2; Bilirubin, Total 0.6 mg/dL (0.2-1.0); Total Protein 7.5 g/dL (6.4-8.2)
[2020-01-07] MEDS ORDERED: ASCORBIC ACID 1,000 MG TAB PO ONE (15:30)
[2020-01-07 15:35] LABS: INR 1.06 (0.9-1.15)
[2020-01-07] MEDS ORDERED: ASPirin 81 mg TAB PO ONE (15:45)
[2020-01-07] MEDS ORDERED: MORPHINE SULF INJ 2 MG/ML SYRINGE 1ML IV PRN ×3 (18:15→22:15)
[2020-01-07] MEDS ORDERED: NITROGLYCERIN 0.4 MG SL TAB SL PRN ×3 (18:15→22:15)
[2020-01-07 19:59] VITALS: BP 88/50
--- NOTE | 2020-01-07 19:59 | NUR ---
Telemetry admit from [facility] admitted to Telemetry unit. SBAR and report not received. Patient oriented to FARHAD MEDEIROS, RN primary RN, unit, room, bed, and unit policies regarding patient care and visiting hours. Patient now on continuous telemetry monitoring, tele box #12. Patient on room air, weighed by bedscale and encouraged to call if they need something. Safety measures in place bed in lowest position, side rails up x2, and call light within reach. All questions and concerns addressed, patient verbalized understanding. Will continue to monitor.
[2020-01-07] MEDS ORDERED: ACETAMINOPHEN 325 MG TAB PO PRN (22:15)
[2020-01-07] MEDS ORDERED: DOCUSATE SOD 100 MG CAP PO PRN (22:15)
[2020-01-07] MEDS ORDERED: HYDROcodone-ACET 5/325MG TAB PO PRN (22:15)
[2020-01-07] MEDS ORDERED: LORazepam 0.5 MG TAB PO PRN (22:15)
[2020-01-07] MEDS ORDERED: ALUM & MAG HYDROX-SIMETH LIQ(MAALOX) 30 ML PO PRN (22:15)
[2020-01-07] MEDS ORDERED: MORPHINE SULFATE 4 MG/ML SYR/VIAL IV PRN (22:15)
[2020-01-07] MEDS ORDERED: ONDANSETRON HCL 4 MG/2 ML VIAL IV PRN (22:15)
[2020-01-07] MEDS ORDERED: SUCRALFATE 1 GM TAB PO ONE (22:30)
[2020-01-08] VITALS (7 sets, daily range): BP systolic 89–110; BP diastolic 47–68
[2020-01-08] MEDS: SODIUM CHLORIDE 0.9% 1,000 ML IV SCH ×2 (00:09→22:25)
[2020-01-08 03:03] LABS: Basophils # (auto) 0 10 ^3/uL (0-0.2); Basophils % (auto) 0.4 % (0.0-2.0); Eosinophils # (auto) 0.1 10 ^3/uL (0-0.8); Eosinophils % (auto) 1.6 % (0.0-7.0); Hematocrit 29.2 % (36.0-46.0); Hemoglobin 9.8 g/dL (12.2-16.2); Lymphocytes # (auto) 0.8 10 ^3/uL (0.4-5.4); Lymphocytes % (auto) 8.9 % (10.0-50.0); Mean Corpuscular Hemoglobin 31.1 pg (28.0-32.0); Mean Corpuscular Hgb Conc. 33.6 g/dL (32.0-36.0); Mean Corpuscular Volume 92.5 fL (80.0-100.0); Monocytes # (auto) 0.6 10 ^3/uL (0-1.3); Monocytes % (auto) 7.1 % (0.0-12.0); Neutrophils # (auto) 7.2 10 ^3/uL (1.6-8.6); Platelet Count (auto) 199 10^3/uL (140-450); Red Blood Cells 3.15 10^6/uL (4.0-5.20); Red Cell Distribution Width 20.5 % (11.8-14.3); White Blood Cell 8.8 10^3/uL (4.4-10.8)
[2020-01-08 04:45] LABS: Albumin 3.3 g/dL (3.4-5.0); Calcium 8.8 mg/dL (8.5-10.1); Magnesium 2.9 mg/dL (1.6-2.6); Potassium 4.1 mmol/L (3.5-5.1)
[2020-01-08 04:53] LABS: BUN/Creatinine Ratio 36.1; Bilirubin, Total 0.6 mg/dL (0.2-1.0); CRP High Sensitivity 7.33 mg/dL (< 0.3)
[2020-01-08 05:50] LABS: Basophils # (auto) 0 10 ^3/uL (0-0.2); Basophils % (auto) 0.4 % (0.0-2.0); Eosinophils # (auto) 0.2 10 ^3/uL (0-0.8); Hematocrit 31.9 % (36.0-46.0); Hemoglobin 10.6 g/dL (12.2-16.2); Lymphocytes # (auto) 0.6 10 ^3/uL (0.4-5.4); Mean Corpuscular Hgb Conc. 33.3 g/dL (32.0-36.0); Mean Corpuscular Volume 93.1 fL (80.0-100.0); Monocytes # (auto) 0.5 10 ^3/uL (0-1.3); Monocytes % (auto) 5.8 % (0.0-12.0); Neutrophils # (auto) 6.6 10 ^3/uL (1.6-8.6); Neutrophils % (auto) 83.8 % (37.0-80.0); Nucleated Red Blood Cells % 0.1 %; Platelet Count (auto) 204 10^3/uL (140-450); Red Blood Cells 3.43 10^6/uL (4.0-5.20); Red Cell Distribution Width 20.3 % (11.8-14.3); White Blood Cell 7.9 10^3/uL (4.4-10.8)
[2020-01-08 06:02] LABS: Albumin 3.4 g/dL (3.4-5.0); Calcium 8.7 mg/dL (8.5-10.1); Magnesium 2.3 mg/dL (1.6-2.6); Potassium 3.8 mmol/L (3.5-5.1)
[2020-01-08 06:03] LABS: INR 1.05 (0.9-1.15); Partial Thromboplastin Time 30.5 sec (23.0-31.2)
[2020-01-08 06:10] LABS: BUN/Creatinine Ratio 33.3; Bilirubin, Total 0.6 mg/dL (0.2-1.0); CRP High Sensitivity 7.88 mg/dL (< 0.3); Phosphorus 3.6 mg/dL (2.5-4.90); Total Protein 7.3 g/dL (6.4-8.2)
[2020-01-08] MEDS: SUCRALFATE 1 GM TAB PO SCH ×4 (06:27→22:24)
[2020-01-08] MEDS: FUROSEMIDE 20 MG/2 ML VIAL IV SCH ×2 (06:27→17:24)
--- NOTE | 2020-01-08 07:10 | NUR ---
OPENING SHIFT NOTE ASSUMED CARE OF PATIENT FROM PRINTER SLOTTER OPERATOR RN FARHAD. PATIENT IS AWAKE, ALERT, AND ORIENTED X4. PATIENT HAS NO S/S OF DISTRESS/SOB OR PAIN. INSTRUCTED PATIENT ON POC, PATIENT VERBALIZED UNDERSTANDING. BED IS IN LOWEST POSITION WITH SIDE RAILS RAISED AND CALL LIGHT IS WITHIN REACH. WILL CONTINUE TO MONITOR.
--- NOTE | 2020-01-08 08:20 | NUR ---
RECEIVED COVID RESULTS FROM [facility]. PATIENT IS NEGATIVE INFORMED FACILITY ADMINISTRATOR. WILL HOLE COVID MEDICATIONS. Addendum: 01/08/20 at 0840 by Chrissy Parsons RN RN HOLD NOT HOLE
[2020-01-08] MEDS: CHOLECALCIFEROL (VITD3) 2,000 UNIT CAP PO SCH (08:41)
[2020-01-08] MEDS: FAMOTIDINE 20 MG TAB PO SCH (08:44)
[2020-01-08] MEDS: ASPirin 81 mg TAB PO SCH (08:55)
[2020-01-08] MEDS: CARVEDILOL 3.125 MG TAB PO SCH ×2 (09:05→22:23)
[2020-01-08] MEDS: LISINOPRIL 5 MG TAB PO SCH (09:06)
--- NOTE | 2020-01-08 09:18 | NUR ---
UA SENT TO LAB
--- NOTE | 2020-01-08 09:27 | NUR ---
PAGED MD KRUGER TO INFORM OF COVID RESULTS. AWAITING CALL BACK
[2020-01-08] MEDS ORDERED: ZINC SULFATE 220mg CAP or TAB PO SCH (10:00)
[2020-01-08] MEDS ORDERED: DOXYCYCLINE 100MG/250ML 250 ML IV SCH (10:00)
[2020-01-08] MEDS ORDERED: ASCORBIC ACID 1,000 MG TAB PO SCH (10:00)
[2020-01-08 10:02] LABS: Urine Bacteria FEW /hpf (None Seen); Urine Blood Negative /uL (Negative); Urine Specific Gravity 1.008 (1.001-1.035); Urine WBC 22 /hpf (0 - 5)
[2020-01-08 10:17] LABS: Alcohol, Urine < 3.0 mg/dL (0-10); Amphetamine Screen, Urine NEGATIVE (NEGATIVE); Barbiturate Scree,Urine NEGATIVE (NEGATIVE); Benzodiazephine Screen, Urine NEGATIVE (NEGATIVE); Cannabinoid Screen, Urine NEGATIVE (NEGATIVE); Cocaine Screen, Urine NEGATIVE (NEGATIVE); Opiate Scree,Urine NEGATIVE (NEGATIVE); Phencyclidine Screen, Urine NEGATIVE (NEGATIVE)
--- NOTE | 2020-01-08 12:43 | NUR ---
INFORMED MD KRUGER OF UA AND UDS RESULTS. PER HE WILL CHANGE ANTIBIOTICS
[2020-01-08] MEDS ORDERED: cefTRIAXone 1GM/50ML D5W 50 ML IV ONE (12:45)
[2020-01-08] MEDS ORDERED: AZITHROMYCIN 500MG/ 250ML 250 ML IV ONE (12:45)
--- NOTE | 2020-01-08 14:45 | NUR ---
PATIENT HAS UNDOCUMENTED AND UNLABELED MEDICATIONS AT BEDSIDE. INFORMED PATIENT OF OUR HOSPITAL POLICY REGARDING MEDICATIONS, PATIENT VERBALIZED UNDERSTANDING. PATIENT WANTS TO KEEP MEDICATIONS AT BEDSIDE AND REFUSED TO HAVE THEM SENT DOWN TO PHARMACY. INFORMED PATIENT TO NOT TAKE MEDICATION WHILE SHE IS IN THE HOSPITAL BECAUSE THEY MAY INTERACT WITH MEDICATIONS WE ARE GIVING HERE. PATIENT VERBALIZED UNDERSTANDING AND STATED SHE WILL NOT TAKE MEDICATIONS WHILE SHE IS HERE.
--- NOTE | 2020-01-08 16:56 | NUR ---
ENDORSED CARE TO FARHAD ADDISON. PATIENT IS BEING TRANSFERRED TO ROOM 290 A VIA WHEELCHAIR
--- NOTE | 2020-01-08 17:09 | NUR ---
PATIENT TRANSFERRED TO ROOM 290 A VIA WHEELCHAIR. PATIENT HAS NO S/S OF DISTRESS/SOB OR PAIN A THIS TIME. INFORMED RN YAJAIRA PATIENT HAS MEDICATIONS WITH HER AND TO INFORM PRIMARY RN FARHAD.
--- NOTE | 2020-01-08 19:40 | NUR ---
Opening Shift Note Assumed care of patient, awake and alert. No S/S of distress/SOB or pain. Instructed on POC and to call for assist PRN, patient verbalized understanding. Bed in lowest position, bed alarm on, call light within reach, will continue to monitor for changes Q1hr and PRN.
[2020-01-08] MEDS: ATORVASTATIN 20 MG TAB PO SCH (22:22)
[2020-01-09 05:00] VITALS: BP 87/40
[2020-01-09 05:36] LABS: Basophils # (auto) 0 10 ^3/uL (0-0.2); Basophils % (auto) 0.8 % (0.0-2.0); Eosinophils # (auto) 0 10 ^3/uL (0-0.8); Eosinophils % (auto) 0.2 % (0.0-7.0); Hematocrit 29.3 % (36.0-46.0); Hemoglobin 9.9 g/dL (12.2-16.2); Lymphocytes # (auto) 0.4 10 ^3/uL (0.4-5.4); Lymphocytes % (auto) 8.3 % (10.0-50.0); Mean Corpuscular Hemoglobin 31.2 pg (28.0-32.0); Mean Corpuscular Hgb Conc. 33.7 g/dL (32.0-36.0); Mean Corpuscular Volume 92.5 fL (80.0-100.0); Monocytes # (auto) 0.5 10 ^3/uL (0-1.3); Monocytes % (auto) 9.9 % (0.0-12.0); Neutrophils # (auto) 4.3 10 ^3/uL (1.6-8.6); Neutrophils % (auto) 80.8 % (37.0-80.0); Platelet Count (auto) 190 10^3/uL (140-450); Red Blood Cells 3.16 10^6/uL (4.0-5.20); White Blood Cell 5.4 10^3/uL (4.4-10.8)
[2020-01-09 05:41] LABS: Albumin 3.1 g/dL (3.4-5.0); Calcium 8.5 mg/dL (8.5-10.1); Magnesium 2.2 mg/dL (1.6-2.6); Potassium 3.9 mmol/L (3.5-5.1)
[2020-01-09 05:42] LABS: INR 1.06 (0.9-1.15); Partial Thromboplastin Time 30.9 sec (23.0-31.2)
[2020-01-09 05:46] LABS: BUN/Creatinine Ratio 33.7; Bilirubin, Total 0.4 mg/dL (0.2-1.0); Phosphorus 3.3 mg/dL (2.5-4.90); Total Protein 6.9 g/dL (6.4-8.2)
[2020-01-09] MEDS: FUROSEMIDE 20 MG/2 ML VIAL IV SCH (06:00)
[2020-01-09] MEDS: SUCRALFATE 1 GM TAB PO SCH (06:08)
[2020-01-09 06:39] VITALS: BP 92/53
--- NOTE | 2020-01-09 07:30 | NUR ---
Opening Shift Note: Assumed care of patient, awake and alert. No S/S of distress/SOB or pain. Bed in lowest locked position, side rails up x 2, call light within reach. Bed alarm activated for patient safety. Patient instructed on POC and to call for assist PRN, will continue to monitor for changes Q1hr and PRN.
[2020-01-09] MEDS: cefTRIAXone 1GM/50ML D5W 50 ML IV SCH (08:51)
[2020-01-09] MEDS: CARVEDILOL 3.125 MG TAB PO SCH ×2 (08:52→21:44)
[2020-01-09] MEDS: ASPirin 81 mg TAB PO SCH (08:52)
[2020-01-09] MEDS: FAMOTIDINE 20 MG TAB PO SCH (08:52)
[2020-01-09 09:04] VITALS: BP 102/53
[2020-01-09] MEDS ORDERED: AZITHROMYCIN 500MG/ 250ML 250 ML IV SCH (10:00)
[2020-01-09] MEDS: CHOLECALCIFEROL (VITD3) 2,000 UNIT CAP PO SCH (10:00)
[2020-01-09] MEDS: LISINOPRIL 5 MG TAB PO SCH (10:00)
--- NOTE | 2020-01-09 12:04 | NUR ---
DR. HERMOSILLO: Dr. Moore at bedside. Discussed POC with patient. Patient verbally agreed.
[2020-01-09 12:27] VITALS: BP 90/45
[2020-01-09 16:42] VITALS: BP 101/54
--- NOTE | 2020-01-09 18:48 | NUR ---
CLOSING NOTE: Patient resting in be. No S/S of distress at this time. care endorsed
--- NOTE | 2020-01-09 19:30 | NUR ---
Opening Shift Note Assumed care of patient, awake and alert. No S/S of distress/SOB or pain. Instructed on POC and to call for assist PRN, will continue to monitor for changes Q1hr and PRN.
[2020-01-09] MEDS: ATORVASTATIN 20 MG TAB PO SCH (21:44)
[2020-01-09 22:00] VITALS: BP 94/57
[2020-01-10 05:00] VITALS: BP 115/50
[2020-01-10 09:00] VITALS: BP 113/47
[2020-01-10] MEDS: cefTRIAXone 1GM/50ML D5W 50 ML IV SCH (09:11)
[2020-01-10] MEDS: CARVEDILOL 3.125 MG TAB PO SCH ×2 (09:14→21:23)
[2020-01-10] MEDS: FUROSEMIDE 20 MG TAB PO SCH (09:15)
[2020-01-10] MEDS: FAMOTIDINE 20 MG TAB PO SCH (09:15)
[2020-01-10] MEDS: ASPirin 81 mg TAB PO SCH (09:15)
[2020-01-10] MEDS: LISINOPRIL 5 MG TAB PO SCH (09:16)
[2020-01-10] MEDS: CHOLECALCIFEROL (VITD3) 2,000 UNIT CAP PO SCH (09:16)
--- NOTE | 2020-01-10 11:48 | NUR ---
assessment Patient is a 79 year old female who is alert and oriented. Patients cognitive abilities are intact. Prior to admission patient lived home with her José Miguel and functioned independently. Patient informed me she is able to care for her own ADLs. Per patient she will return home to her prior living arrangements post discharge and [facility] will transport her home. Ptient informed me she has no need for DME. Patient informed me prior to admission she was shaking and just not feeling well so she came to ER. Patient informed me she is feeling much better now. Patient informed me she has no needs and wants to return home on discharge. I have offered patient a fww and she refused. I informed patient I will continue to monitor and follow up as appropriate. As of now patient has no post discharge needs identified. I informed patient she has a right to speak to a director social regarding all care. I informed patient she has a right to participate in any and all discharge planning. Patient does not have a POA and advanced directive. I have offered patient information on POA and advanced directives. I informed the patient the advantages and benefits of having an Advanced Directive. Patient verbalized understanding and agreed to discharge plan. Addendum: 01/10/20 at 1151 by Genevieve COX Amended: Links added.
[2020-01-10 13:00] VITALS: BP 96/46
[2020-01-10 17:00] VITALS: BP 115/42
[2020-01-10] MEDS: ATORVASTATIN 20 MG TAB PO SCH (21:23)
[2020-01-10 22:00] VITALS: BP 105/56
[2020-01-11 05:00] VITALS: BP 101/57
[2020-01-11 06:01] LABS: Basophils # (auto) 0.1 10 ^3/uL (0-0.2); Basophils % (auto) 1.3 % (0.0-2.0); Eosinophils # (auto) 0.2 10 ^3/uL (0-0.8); Eosinophils % (auto) 4.1 % (0.0-7.0); Hemoglobin 9.7 g/dL (12.2-16.2); Lymphocytes # (auto) 0.6 10 ^3/uL (0.4-5.4); Lymphocytes % (auto) 14.9 % (10.0-50.0); Mean Corpuscular Hemoglobin 30.6 pg (28.0-32.0); Mean Corpuscular Hgb Conc. 33.4 g/dL (32.0-36.0); Mean Corpuscular Volume 91.7 fL (80.0-100.0); Monocytes # (auto) 0.5 10 ^3/uL (0-1.3); Monocytes % (auto) 12.5 % (0.0-12.0); Neutrophils # (auto) 2.6 10 ^3/uL (1.6-8.6); Neutrophils % (auto) 67.2 % (37.0-80.0); Platelet Count (auto) 217 10^3/uL (140-450); Red Blood Cells 3.17 10^6/uL (4.0-5.20); Red Cell Distribution Width 18.9 % (11.8-14.3); White Blood Cell 3.9 10^3/uL (4.4-10.8)
[2020-01-11 06:21] LABS: Albumin 2.9 g/dL (3.4-5.0); Calcium 8.5 mg/dL (8.5-10.1)
[2020-01-11 06:26] LABS: BUN/Creatinine Ratio 34.5; Bilirubin, Total 0.3 mg/dL (0.2-1.0); Total Protein 6.5 g/dL (6.4-8.2)
[2020-01-11 09:00] VITALS: BP 92/58
[2020-01-11] MEDS: cefTRIAXone 1GM/50ML D5W 50 ML IV SCH (09:00)
[2020-01-11] MEDS: CARVEDILOL 3.125 MG TAB PO SCH (09:45)
[2020-01-11] MEDS: FUROSEMIDE 20 MG TAB PO SCH (09:45)
[2020-01-11] MEDS: ASPirin 81 mg TAB PO SCH (09:45)
[2020-01-11] MEDS: LISINOPRIL 5 MG TAB PO SCH (09:46)
[2020-01-11] MEDS: CHOLECALCIFEROL (VITD3) 2,000 UNIT CAP PO SCH (09:46)
[2020-01-11] MEDS: FAMOTIDINE 20 MG TAB PO SCH (09:46)
[2020-01-11 11:40] VITALS: BP 101/59
--- NOTE | 2020-01-11 11:56 | NUR ---
PRESCRIPTION SCRIPT SENT TO [facility] TO BE FILLED.
--- NOTE | 2020-01-11 13:46 | NUR ---
Discharge instructions given as ordered. Encourage to follow up with PMD as instructed. All questions and concerns addressed. Patient verbalized understanding. Medication reconciliation form completed and copy given to patient. [facility] given to patient. IV removed with catheter intact, pressure dressing applied. Telemetry unit returned to ICU. Patient taken to vehicle via wheelchair with all personal belongings, accompanied by staff and family member. No distress noted at time of departure.
== END 2020-01-11 13:46 | disposition home or self-care (01) | DRG 871 ==
LOC: ER 13:48 → EDBD 13:48 → TELE-EAST 13:49 → TELE-WESTW 19:55
PROVIDERS: ADMIT Hospitalist; ATTEND Internal Medicine
DX: A41.9 Sepsis, unspecified organism (principal); I21.A1 Myocardial infarction type 2; N17.0 Acute kidney failure with tubular necrosis; J18.9 Pneumonia, unspecified organism; I50.43 Acute on chronic combined systolic (congestive) and diastolic (congestive) heart failure; E87.1 Hypo-osmolality and hyponatremia; N39.0 Urinary tract infection, site not specified; I13.0 Hypertensive heart and chronic kidney disease with heart failure and stage 1 through stage 4 chronic kidney disease, or unspecified chronic kidney disease; J44.0 Chronic obstructive pulmonary disease with (acute) lower respiratory infection; I42.9 Cardiomyopathy, unspecified; N18.3 Chronic kidney disease, stage 3 (moderate); D63.8 Anemia in other chronic diseases classified elsewhere; D53.9 Nutritional anemia, unspecified; M19.90 Unspecified osteoarthritis, unspecified site; K44.9 Diaphragmatic hernia without obstruction or gangrene; K21.9 Gastro-esophageal reflux disease without esophagitis; B96.20 Unspecified Escherichia coli [E. coli] as the cause of diseases classified elsewhere; D50.9 Iron deficiency anemia, unspecified; G89.29 Other chronic pain; M54.5 Low back pain; E78.5 Hyperlipidemia, unspecified; K29.70 Gastritis, unspecified, without bleeding; Z20.828 Contact with and (suspected) exposure to other viral communicable diseases; Z95.810 Presence of automatic (implantable) cardiac defibrillator; Z90.710 Acquired absence of both cervix and uterus; I25.2 Old myocardial infarction; Z90.49 Acquired absence of other specified parts of digestive tract; Z90.89 Acquired absence of other organs; Z79.899 Other long term (current) drug therapy; Z79.82 Long term (current) use of aspirin; Z82.49 Family history of ischemic heart disease and other diseases of the circulatory system; Z81.1 Family history of alcohol abuse and dependence
CPT/HCPCS: 36415; 71045; 80053; 80061; 80307; 81001; 82728; 83036; 83605; 83615; 83735; 83880; 84100; 84443; 84484; 85025; 85379; 85610; 85730; 86141; 87040; 87086; 87088; 87186; 93005; 96365; 96366; 96367; G0378; J0696

== ENCOUNTER → 2020-03-19 | Outpatient (CLI) | payer OTHER ==
[2020-03-19 10:00] LABS: Basophils # (auto) 0.1 10 ^3/uL (0-0.2); Basophils % (auto) 1.1 % (0.0-2.0); Eosinophils # (auto) 0.3 10 ^3/uL (0-0.8); Eosinophils % (auto) 5.1 % (0.0-7.0); Hemoglobin 10.5 g/dL (12.2-16.2); Lymphocytes # (auto) 0.8 10 ^3/uL (0.4-5.4); Lymphocytes % (auto) 15.7 % (10.0-50.0); Mean Corpuscular Hemoglobin 33.5 pg (28.0-32.0); Mean Corpuscular Hgb Conc. 33.7 g/dL (32.0-36.0); Mean Corpuscular Volume 99.3 fL (80.0-100.0); Monocytes # (auto) 0.4 10 ^3/uL (0-1.3); Monocytes % (auto) 7.6 % (0.0-12.0); Neutrophils # (auto) 3.5 10 ^3/uL (1.6-8.6); Neutrophils % (auto) 70.5 % (37.0-80.0); Nucleated Red Blood Cells % 0.1 %; Platelet Count (auto) 233 10^3/uL (140-450); Red Blood Cells 3.12 10^6/uL (4.0-5.20); Red Cell Distribution Width 13.1 % (11.8-14.3)
[2020-03-19 10:47] LABS: Magnesium 2.5 mg/dL (1.6-2.6); Potassium 4.4 mmol/L (3.5-5.1)
== END | disposition home or self-care (01) ==
LOC: LAB 09:27
PROVIDERS: ATTEND Internal Medicine
DX: I50.22 Chronic systolic (congestive) heart failure (principal); I48.20 Chronic atrial fibrillation, unspecified; D64.9 Anemia, unspecified
CPT/HCPCS: 36415; 83540; 83735; 84132; 85025

== ENCOUNTER → 2020-04-17 | Outpatient (CLI) | payer OTHER | END | disposition home or self-care (01) | LOC: LAB 13:58 | PROVIDERS: ATTEND Physician Assistant | DX: Z20.828 Contact with and (suspected) exposure to other viral communicable diseases (principal) | CPT/HCPCS: C9803; U0003 ==

== ENCOUNTER → 2020-05-22 | Outpatient (CLI) | payer OTHER | END | disposition home or self-care (01) | LOC: LAB 14:03 | PROVIDERS: ATTEND Physician Assistant | DX: U07.1 COVID-19 (principal) | CPT/HCPCS: C9803; U0003 ==

== ENCOUNTER 2020-06-14 14:42 | Inpatient (IN) | payer MEDICARE, OTHER ==
[~2020-06-14] VITALS: Ht 157.5 cm; Wt 48.2 kg
[2020-06-14 15:45] LABS: Albumin 3.7 g/dL (3.4-5.0); Calcium 8.6 mg/dL (8.5-10.1); Potassium 3.9 mmol/L (3.5-5.1)
[2020-06-14 15:48] LABS: BUN/Creatinine Ratio 19.8; Bilirubin, Total 0.3 mg/dL (0.2-1.0); Total Protein 7.3 g/dL (6.4-8.2)
[2020-06-14 15:51] LABS: INR 1.06 (0.9-1.15); Partial Thromboplastin Time 24.9 sec (23.0-31.2)
[2020-06-14 16:02] LABS: Eosinophils # (auto) 0.1 10 ^3/uL (0-0.8); Mean Corpuscular Hemoglobin 25.8 pg (28.0-32.0); Mean Corpuscular Hgb Conc. 32.2 g/dL (32.0-36.0); Monocytes # (auto) 0.5 10 ^3/uL (0-1.3); Red Blood Cells 2.19 10^6/uL (4.0-5.20)
[2020-06-14 16:03] LABS: Basophils # (auto) 0.1 10 ^3/uL (0-0.2); Eosinophils % (auto) 1.8 % (0.0-7.0); Hematocrit 17.5 % (36.0-46.0); Lymphocytes # (auto) 0.8 10 ^3/uL (0.4-5.4); Lymphocytes % (auto) 15.2 % (10.0-50.0); Mean Corpuscular Volume 80.1 fL (80.0-100.0); Monocytes % (auto) 9.9 % (0.0-12.0); Neutrophils # (auto) 3.8 10 ^3/uL (1.6-8.6); Neutrophils % (auto) 72.1 % (37.0-80.0); Platelet Count (auto) 367 10^3/uL (140-450); Red Cell Distribution Width 16.1 % (11.8-14.3); White Blood Cell 5.3 10^3/uL (4.4-10.8)
[2020-06-14 16:14] LABS: Hemoglobin 5.7 g/dL (12.2-16.2)
[2020-06-14 19:14] VITALS: BP 116/48
[2020-06-14] MEDS ORDERED: LORazepam 0.5 MG TAB PO PRN (19:15)
[2020-06-14] MEDS ORDERED: MORPHINE SULF INJ 2 MG/ML SYRINGE 1ML IV PRN ×2 (19:15)
[2020-06-14] MEDS ORDERED: NITROGLYCERIN 0.4 MG SL TAB SL PRN (19:15)
[2020-06-14] MEDS ORDERED: hydrALAZINE HCL 20 MG/ML VL IV PRN (19:15)
[2020-06-14 19:29] VITALS: BP 98/49
[2020-06-14 21:36] VITALS: BP 108/40
[2020-06-14 21:42] VITALS: BP 108/40
[2020-06-14] MEDS ORDERED: PANTOPRAZOLE 40 MG/10 ML VIAL INJ IV SCH (22:00)
[2020-06-14 22:11] VITALS: BP 103/35
[2020-06-15 01:05] VITALS: BP 111/50
[2020-06-15 03:39] LABS: Hematocrit 25.5 % (36.0-46.0); Hemoglobin 8.5 g/dL (12.2-16.2)
[2020-06-15 07:07] VITALS: BP 126/67
[2020-06-15 08:00] VITALS: BP 127/67
[2020-06-15 08:06] LABS: Hematocrit 25.9 % (36.0-46.0); Hemoglobin 8.8 g/dL (12.2-16.2)
[2020-06-15 08:22] LABS: Potassium 3.9 mmol/L (3.5-5.1)
[2020-06-15 08:36] LABS: Albumin 3.2 g/dL (3.4-5.0); BUN/Creatinine Ratio 22.5; Bilirubin, Total 0.5 mg/dL (0.2-1.0); Calcium 8.6 mg/dL (8.5-10.1); Total Protein 6.6 g/dL (6.4-8.2)
[2020-06-15] MEDS ORDERED: OMNIPAQUE ORAL SOLN 500ml 12mg/ml PO ONE (11:36)
[2020-06-15] MEDS ORDERED: IOHEXOL 300 MG/ML 100ML BOTTLE IJ ONE (11:41)
[2020-06-15 12:10] LABS: Hemoglobin 8.3 g/dL (12.2-16.2)
[2020-06-15 12:14] LABS: Hematocrit 24.8 % (36.0-46.0)
[2020-06-15 16:16] VITALS: BP 128/75
[2020-06-15 18:12] LABS: Hematocrit 26.7 % (36.0-46.0); Hemoglobin 8.6 g/dL (12.2-16.2)
[2020-06-15 21:24] LABS: Urine Bacteria NONE SEEN /hpf (None Seen); Urine Blood Negative /uL (Negative); Urine WBC 32 /hpf (0 - 5)
[2020-06-16] VITALS: BP 97/55
[2020-06-16 08:00] VITALS: BP 125/58
[2020-06-16 12:26] LABS: Basophils # (auto) 0 10 ^3/uL (0-0.2); Basophils % (auto) 0.6 % (0.0-2.0); Eosinophils # (auto) 0.1 10 ^3/uL (0-0.8); Eosinophils % (auto) 1.9 % (0.0-7.0); Hematocrit 27.8 % (36.0-46.0); Lymphocytes # (auto) 0.6 10 ^3/uL (0.4-5.4); Lymphocytes % (auto) 10.2 % (10.0-50.0); Mean Corpuscular Hemoglobin 27.5 pg (28.0-32.0); Mean Corpuscular Hgb Conc. 32.5 g/dL (32.0-36.0); Mean Corpuscular Volume 84.8 fL (80.0-100.0); Monocytes # (auto) 0.6 10 ^3/uL (0-1.3); Monocytes % (auto) 9.3 % (0.0-12.0); Neutrophils # (auto) 4.9 10 ^3/uL (1.6-8.6); Nucleated Red Blood Cells % 0.1 %; Platelet Count (auto) 281 10^3/uL (140-450); Red Blood Cells 3.28 10^6/uL (4.0-5.20); Red Cell Distribution Width 16.6 % (11.8-14.3); White Blood Cell 6.3 10^3/uL (4.4-10.8)
[2020-06-16 12:39] LABS: INR 1.09 (0.9-1.15)
[2020-06-16 12:47] LABS: Potassium 3.9 mmol/L (3.5-5.1)
[2020-06-16] MEDS ORDERED: LIDOCAINE VISCOUS 2% 15ML UD ONE (12:48)
[2020-06-16] MEDS ORDERED: FLUMAZENIL 0.1 MG/ML INJ 10ML MDV IV ONE (12:48)
[2020-06-16] MEDS ORDERED: NALOXONE HCL 0.4 MG/ML VIAL ONE (12:48)
[2020-06-16] MEDS ORDERED: diphenhdrAMINE HCL 50 MG/1 ML VL ONE (12:48)
[2020-06-16] MEDS ORDERED: SODIUM CHLORIDE LOCK 10 ML ONE (12:50)
[2020-06-16 12:55] LABS: Bilirubin, Total 0.5 mg/dL (0.2-1.0); Calcium 8.5 mg/dL (8.5-10.1); Total Protein 6.9 g/dL (6.4-8.2)
[2020-06-16 13:05] LABS: Albumin 0.8 g/dL (3.4-5.0)
[2020-06-16] MEDS ORDERED: ALBUMIN 25% 50 ML IV ONE (13:15)
[2020-06-16] MEDS: fentaNYL CITRATE 100 MCG/2 ML VL ONE ×2 (15:46→15:48)
[2020-06-16] MEDS: MIDAZOLAM HCL 5 MG/ML-1ML VIAL ONE ×2 (15:46→15:48)
[2020-06-16 16:00] VITALS: BP 129/62
[2020-06-16] MEDS: ALBUMIN 25% 50 ML IV SCH (16:56)
[2020-06-16] MEDS: SUCRALFATE 1 GM/10 ML ORAL SUSP PO SCH ×2 (18:11→21:09)
[2020-06-17] VITALS: BP 126/61
[2020-06-17] MEDS: ALBUMIN 25% 50 ML IV SCH ×2 (01:10→09:40)
[2020-06-17] MEDS: SUCRALFATE 1 GM/10 ML ORAL SUSP PO SCH ×3 (06:30→17:09)
[2020-06-17 08:00] VITALS: BP 121/69
[2020-06-17 16:00] VITALS: BP 114/55
[2020-06-17 18:07] VITALS: BP 114/55
[2020-06-17] MEDS ORDERED: MULTCHW OR (19:00)
[2020-06-17] MEDS ORDERED: LISI2.5T47 PO (19:00)
[2020-06-17] MEDS ORDERED: FLUO1TAB3 PO (19:00)
[2020-06-17] MEDS ORDERED: DICL1GEL50 TD (19:00)
[2020-06-17] MEDS ORDERED: ATOR10TA PO (19:00)
[2020-06-17] MEDS ORDERED: CHOL1CAP47 PO (19:00)
[2020-06-17] MEDS ORDERED: SUCR1SUS10 PO (19:00)
[2020-06-17] MEDS ORDERED: CARV12.544 PO (19:00)
[2020-06-17] MEDS ORDERED: FURO20TA3 PO (19:00)
[2020-06-17] MEDS ORDERED: PANT40T PO (19:00)
[2020-06-17] MEDS ORDERED: FLUO-125 PO (19:00)
== END 2020-06-17 18:48 | disposition home or self-care (01) | DRG 811 ==
LOC: ER 14:42 → TELE 14:43 → TELE-EAST 06-15 06:25
PROVIDERS: ADMIT Family Medicine; ATTEND Internal Medicine
PROC: 30230N1 Transfusion of Nonautologous Red Blood Cells into Peripheral Vein, Open Approach (ICD-10-PCS; principal; 2020-06-14)
PROC: 0DB68ZX Excision of Stomach, Via Natural or Artificial Opening Endoscopic, Diagnostic (ICD-10-PCS; 2020-06-16)
PROC: 0DB88ZX Excision of Small Intestine, Via Natural or Artificial Opening Endoscopic, Diagnostic (ICD-10-PCS; 2020-06-16)
DX: D64.9 Anemia, unspecified (principal); E43 Unspecified severe protein-calorie malnutrition; U07.1 COVID-19; K25.4 Chronic or unspecified gastric ulcer with hemorrhage; K29.71 Gastritis, unspecified, with bleeding; N39.0 Urinary tract infection, site not specified; Z68.1 Body mass index [BMI] 19.9 or less, adult; K25.9 Gastric ulcer, unspecified as acute or chronic, without hemorrhage or perforation; E78.5 Hyperlipidemia, unspecified; I25.10 Atherosclerotic heart disease of native coronary artery without angina pectoris; K44.9 Diaphragmatic hernia without obstruction or gangrene; M19.90 Unspecified osteoarthritis, unspecified site; I49.5 Sick sinus syndrome; K21.9 Gastro-esophageal reflux disease without esophagitis; M41.80 Other forms of scoliosis, site unspecified; K31.9 Disease of stomach and duodenum, unspecified; N28.9 Disorder of kidney and ureter, unspecified; Z82.49 Family history of ischemic heart disease and other diseases of the circulatory system; I25.2 Old myocardial infarction; Z90.49 Acquired absence of other specified parts of digestive tract; Z90.710 Acquired absence of both cervix and uterus; Z95.1 Presence of aortocoronary bypass graft; Z95.0 Presence of cardiac pacemaker
CPT/HCPCS: 36415; 36430; 71260; 74177; 80053; 81001; 85014; 85018; 85025; 85610; 85730; 86850; 86900; 86901; 86920; G0378; J2250

== ENCOUNTER → 2020-06-14 | Outpatient (CLI) | payer OTHER, MEDICARE ==
[2020-06-14 12:43] LABS: Eosinophils # (auto) 0.1 10 ^3/uL (0-0.8); Lymphocytes # (auto) 0.7 10 ^3/uL (0.4-5.4); Lymphocytes % (auto) 12.5 % (10.0-50.0); Monocytes # (auto) 0.5 10 ^3/uL (0-1.3); Neutrophils # (auto) 4.4 10 ^3/uL (1.6-8.6); White Blood Cell 5.8 10^3/uL (4.4-10.8)
[2020-06-14 12:45] LABS: Basophils # (auto) 0 10 ^3/uL (0-0.2); Basophils % (auto) 0.6 % (0.0-2.0); Eosinophils % (auto) 1.8 % (0.0-7.0); Hematocrit 17.9 % (36.0-46.0); Mean Corpuscular Hemoglobin 25.7 pg (28.0-32.0); Mean Corpuscular Volume 80.3 fL (80.0-100.0); Neutrophils % (auto) 76.1 % (37.0-80.0); Platelet Count (auto) 376 10^3/uL (140-450); Red Blood Cells 2.24 10^6/uL (4.0-5.20); Red Cell Distribution Width 16.1 % (11.8-14.3)
[2020-06-14 12:58] LABS: Hemoglobin 5.7 g/dL (12.2-16.2)
[2020-06-14 13:28] LABS: Albumin 3.7 g/dL (3.4-5.0); Calcium 9.2 mg/dL (8.5-10.1); Potassium 4.3 mmol/L (3.5-5.1)
[2020-06-14 13:31] LABS: BUN/Creatinine Ratio 22.2; Bilirubin, Total 0.4 mg/dL (0.2-1.0); Total Protein 7.5 g/dL (6.4-8.2)
== END | disposition home or self-care (01) ==
LOC: LAB 12:23
PROVIDERS: ATTEND Internal Medicine
DX: R53.83 Other fatigue (principal); D64.9 Anemia, unspecified
CPT/HCPCS: 36415; 80053; 82607; 83540; 83615; 85025; 85652